=== PATIENT | female | born 1965 | race Caucasian/White ===

== ENCOUNTER 2022-08-17 13:40 | Emergency (ER) | payer OTHER ==
[~2022-08-17] VITALS: Ht 160 cm; Wt 85.7 kg
[2022-08-17 14:12] VITALS: BP 144/90; PULSE 79; RESP 17; TEMP 97.4; O2SAT 98
[2022-08-17] MEDS ORDERED: KETOROLAC 30 MG/ML VIAL IM ONE (15:35)
[2022-08-17] MEDS ORDERED: NAPR-54 PO (17:41)
[2022-08-17] MEDS ORDERED: LID5T TP (17:41)
[2022-08-17 17:48] VITALS: O2SAT 98
--- NOTE | 2022-08-17 17:49 | NUR ---
Patient discharged with v/s stable. Written and verbal after care instructions given and explained. Patient alert, oriented and verbalized understanding of instructions. Ambulatory with steady gait. All questions addressed prior to discharge. ID band removed. Patient advised to follow up with PMD. Rx of lidoderm, naprosyn given. Patient educated on indication of medication including possible reaction and side effects. Opportunity to ask questions provided and answered.
== END 2022-08-17 17:49 | disposition home or self-care (01) ==
LOC: MED 13:40
DX: S86.912A Strain of unspecified muscle(s) and tendon(s) at lower leg level, left leg, initial encounter (principal); G89.29 Other chronic pain; M54.50 Low back pain, unspecified; R03.0 Elevated blood-pressure reading, without diagnosis of hypertension; Z98.890 Other specified postprocedural states; Z79.899 Other long term (current) drug therapy; Z79.1 Long term (current) use of non-steroidal anti-inflammatories (NSAID); W18.39XA Other fall on same level, initial encounter; Y92.89 Other specified places as the place of occurrence of the external cause; Y93.89 Activity, other specified; Y99.8 Other external cause status
CPT/HCPCS: 72100; 73502; 73562; 96372; 99284; J1885